=== PATIENT | male | born 1980 | race Caucasian/White ===

== ENCOUNTER 2022-04-21 15:48 | Emergency (ER) | payer MEDICAID ==
[~2022-04-21] VITALS: Ht 180.3 cm; Wt 102.0 kg
[2022-04-21 15:52] VITALS: BP 132/74
[2022-04-21] MEDS ORDERED: HYDR-3965 PO (17:01)
[2022-04-21] MEDS ORDERED: ONDA4TAB12 PO (17:01)
== END 2022-04-21 17:29 | disposition home or self-care (01) ==
LOC: ER 15:50
DX: S92.351A Displaced fracture of fifth metatarsal bone, right foot, initial encounter for closed fracture (principal); X58.XXXA Exposure to other specified factors, initial encounter; Y93.89 Activity, other specified; Y92.89 Other specified places as the place of occurrence of the external cause; Y99.8 Other external cause status
CPT/HCPCS: 73630; 99283; L4360

== ENCOUNTER 2023-01-09 10:41 | Emergency (ER) | payer MEDICAID ==
[~2023-01-09] VITALS: Ht 177.8 cm; Wt 108.1 kg
[~2023-01-09 10:41] MED LIST: ONDA4TAB12 PO
[2023-01-09] MEDS ORDERED: diazepam inj 5 MG/ML inj. IM ONE (12:35)
[2023-01-09] MEDS ORDERED: ketorolac trometh inj. 60 MG/2 ML VIAL IM ONE (12:35)
[2023-01-09] MEDS ORDERED: PRED20TA PO (12:38)
[2023-01-09] MEDS ORDERED: CYCL-1 PO (12:38)
[2023-01-09 13:16] VITALS: BP 123/82; PULSE 60; RESP 16; TEMP 98.4; O2SAT 98
== END 2023-01-09 13:24 | disposition home or self-care (01) ==
LOC: ER 10:42
DX: S39.012A Strain of muscle, fascia and tendon of lower back, initial encounter (principal); M54.16 Radiculopathy, lumbar region; Z79.899 Other long term (current) drug therapy; X58.XXXA Exposure to other specified factors, initial encounter; Y93.89 Activity, other specified; Y92.89 Other specified places as the place of occurrence of the external cause; Y99.8 Other external cause status
CPT/HCPCS: 96372; 99284; J1885; J3360